=== PATIENT | male | born 2000 | race Asian ===

== ENCOUNTER 2023-11-03 03:01 | Emergency (ER) | payer OTHER ==
[~2023-11-03] VITALS: Ht 182.9 cm; Wt 69.9 kg
[2023-11-03 03:05] VITALS: BP 118/79; PULSE 90; RESP 16; TEMP 98.1; O2SAT 98
[2023-11-03 06:37] VITALS: BP 118/79; PULSE 90; RESP 16; TEMP 98.1; O2SAT 98
== END 2023-11-03 06:37 | disposition home or self-care (01) ==
LOC: MED 03:01
DX: S01.03XA Puncture wound without foreign body of scalp, initial encounter (principal); W22.8XXA Striking against or struck by other objects, initial encounter; Y92.89 Other specified places as the place of occurrence of the external cause; Y93.89 Activity, other specified; Y99.8 Other external cause status
CPT/HCPCS: 99281